=== PATIENT | male | born 1935 | race Caucasian/White ===

== ENCOUNTER 2016-05-21 10:15 | Inpatient (IN) | payer MEDICARE, OTHER ==
[~2016-05-21] VITALS: Ht 182.9 cm; Wt 63.9 kg
[2016-05-21] VITALS (15 sets, daily range): BP systolic 118–147; BP diastolic 58–88; PULSE 44–70; RESP 12–21; O2SAT 96–100
[~2016-05-21 10:15] MED LIST: 0.9% Sodium Chloride 1,000 ML ONE; Heparin 1,000 Unit/mL 10 mL Inj ONE; Heparin 1,000 Units/500 mL NS Premix IV ONE; Heparin 5,000 Units/500 mL NS Premix IV ONE; Nitroglycerin 50,000 mcg/250 mL D5W Premix IV ONE
--- NOTE | 2016-05-21 10:20 | ED.REPORT ---
HPI-Chest Pain 40 and Over Date of Service May 21, 2016 ED Provider: Dr. Mijares Pt is a 81 year old male with a hx of Afib and prostate cancer presenting to the ED via EMS complaining of chest pain onset 0845 this morning. Pre hospital EKG shows clear cut inferior wall STEMI with ST elevation in 23 and AVF with reciprocal changes in anterior leads. His heart rate was in the 30s in the field. Associated symptoms include abdominal pain. Denies SOB, chest pain currently. He denies being on anticoagulants or history of heart disease or kidney problems. Pt given 4000 bolus heparin, 1000 units per hour since 0940, 324 ASA, atropine and Plavix 300 at 0940. No beta hina given because of bradycardia. Pt is on dig alone for Afib no anticoagulants or ASA normally taken. Nursing Notes Stated Complaint: STEMI Chief Complaint: Chest Pain Nursing Notes Reviewed: Yes Allergies: Coded Allergies: gatifloxacin (Verified Allergy, Unknown, 05/21/16) pseudoephedrine (Verified Allergy, Unknown, 05/21/16) General Time Seen by MD: 10:15 Chief Complaint Chest pain Hx Obtained From: Patient, EMS Arrived By: Ambulance Sudden in Onset?: Yes Onset Occurred: 1 - 4 hours ago Symptom Duration: Waxes and wanes Quality: Painful Severity: Current: No pain currently Severity: Maximum: Moderate Recent Healthcare: No recent doctor visit, No recent hospitalization Similar Sx Previous: No Past Medical History Past Medical History Prostate cancer Reports: Atrial fibrillation Past Surgical History denies Smoking History Unknown if Ever Smoker Ambulatory Status Independent Review of Systems Respiratory: Denies: Shortness of breath Cardiovascular: Reports: Chest pain GI: Reports: Abdominal pain Complete sys rev & neg: except as marked. Physical Exam Initial Vital Signs Vital signs are on the nursing flow sheet. Initial VS: Reviewed Head / Eyes: Atraumatic, Normocephalic, PERRL ENT: Mucous membranes moist, Conjunctiva normal, No scleral icterus Neck: Supple, Non-tender, Full range of motion Skin: Warm, Dry, No cyanosis Neurologic: Alert, Oriented, Nonfocal Psychiatric: Mood/affect normal, Behavior normal, Normal thought content General/Constitutional: Awake, Alert, No acute distress, Well appearing Respiratory / Chest: Breath sounds NL, Breath sounds = bilat, No respiratory distress, No rales, No rhonchi, No wheezing Cardiovascular: Heart rate NL, Regular rhythm, Heart sounds NL Abdomen: Soft, Non-tender Interpretation & Diagnostics ECG Interpretation ECG Interpretation: Clear cut inferior wall STEMI. With ST elevation in 23 and AVF with reciprocal changes in anterior leads. Interpreted by: ED physician ECG Interpretation: Nonspecific ST wave changes. Time: 10:22 Interpreted by: ED physician X-Ray Chest Interpretation Chest Xray Interpretation: IMPRESSION: No acute cardiopulmonary findings. Dictated by: Ruthy Lucia M.D. on 05/21/2016 at 10:41 View: Portable, 1 view Interpretation / Wet Read by: Interpret - Radiologist Re-Eval/Medical Decision Time of Eval: 10:26 Patient Status: Condition improved Re-Evaluation/Progress Note: Pt being prepared to go to open hearth laborer. Counseled Regarding: Diagnosis, Lab results, Need for follow-up, When/why to return to ED Discharge & Departure Primary Impression: STEMI (ST elevation myocardial infarction) Disposition: ADMITTED TO HOSPITAL Discharge Condition All VS Reviewed: Yes Condition: Improved Crit Care Except Billable Proc Time Spent: 30-74 minutes Services Performed: Patient management by me, Time spent at bedside, Reviewing test results, Reviewing imaging, Discussing patient care, Documentation in record Scribe Attestation Portions of this note were transcribed by Carina Calvo. I, Dr. Mijares personally performed the history, physical exam and medical decision-making; I reviewed and confirmed the accuracy of the information in the transcribed note. Signed by: Ling Felipe, 05/21/2016 and 1202. Arsen Mijares MD May 21, 2016 10:20 CARINA CALVO May 21, 2016 10:27
[2016-05-21] MEDS ORDERED: Ondansetron 2 mg/mL 2 mL Inj IVPUSH ONE (10:25)
[2016-05-21] MEDS ORDERED: Heparin 25K Unit/500mL 0.45 NS 25,000 UNIT in IV Premix 1 EACH IV SCH (10:25)
[2016-05-21] MEDS ORDERED: 0.9% Sodium Chloride 1,000 ML IV ONE (10:25)
--- NOTE | 2016-05-21 10:43 | DRSVH ---
PROCEDURE: X-RAY CHEST ONE VIEW, PORTABLE ([id number]) INDICATIONS: CP TECHNIQUE: One view of the chest was acquired. COMPARISON: None. FINDINGS: Surgical changes and devices: None. Lungs and pleura: No pleural effusions or pneumothorax. Lungs are clear. Mediastinum: Mediastinal contours appear normal. Heart size is normal. Bones and chest wall: No suspicious bony lesions. Overlying soft tissues appear unremarkable. IMPRESSION: No acute cardiopulmonary findings. Dictated by: Ruthy Lucia M.D. on 05/21/2016 at 10:41 Approved by: Ruthy Lucia M.D. on 05/21/2016 at 10:41
[2016-05-21] MEDS ORDERED: fentaNYL-PF 50 mCg/mL 2 mL Inj ONE (10:50)
[2016-05-21] MEDS ORDERED: Atropine 1 mg/10 mL (Code) Syringe ONE (10:54)
[2016-05-21] MEDS ORDERED: NitroPRUSSIDE 25,000 mCg/mL 2 mL Inj IV ONE (10:56)
[2016-05-21] MEDS ORDERED: Dextrose 5% 250 ML IV ONE (10:56)
[2016-05-21 11:16] LABS: TROPONIN T 0.01 ug/L (0.0-0.011)
[2016-05-21] MEDS ORDERED: 0.9% Sodium Chloride 250 ML IV PRN (12:22)
[2016-05-21] MEDS ORDERED: Ondansetron 2 mg/mL 2 mL Inj IVPUSH PRN (12:25)
[2016-05-21] MEDS ORDERED: PSYL660P17 PO (13:30)
[2016-05-21] MEDS ORDERED: DIGO125T16 PO (13:30)
[2016-05-21] MEDS ORDERED: DOCU250C2 PO (13:30)
[2016-05-21 13:32] LABS: BASOPHILS % (AUTO) 0.2 % (0-3); EOSINOPHILS % (AUTO) 1.3 % (0-5); MONOCYTES % (AUTO) 9.3 % (4-12); Mean Corpuscular Hemoglobin 29.8 pg (27.0-35.0); Mean Corpuscular Volume 92.5 fL (81-100); Platelet Count 125 bil/L (150-400)
--- NOTE | 2016-05-21 13:55 | NUR ---
Admit Note: Patient was admitted to CCU room 2020. Pt arrived via pt bed from superintendent geophysical laboratory at about 1150. Pt A&O X3. Tele: Sinus Sharif. Denies CP, SOB palpitations. RA. VSS. PIV SL X2. R groin site is soft, non tender to touch. Bio occlusive dressing C/D/I. Dorsalis pedis pulses palpable and equal bilaterally. Patient states he uses [facility] for pharmacy.
--- NOTE | 2016-05-21 15:22 | DI95 ---
[address] [address] INTERVENTIONAL CARDIAC CATHETERIZATION PATIENT: TONYA TAYLOR : 1935 MR#: [id number] ADMIT: 05/21/2016 JOB ID: [id number] PROCEDURE: Selective right and left coronary angiography, left heart catheterization, percutaneous intervention of the right coronary artery. INDICATION: Acute ME. PROCEDURAL DETAILS: These are well enumerated in the procedure log to which the reader and the coders are referred. ANGIOGRAPHIC FINDINGS: 1. Left main: No significant disease. 2. LAD Is a moderate-caliber vessel, free of any critical disease. 3. Circumflex is a small, nondominant vessel. In its mid segment, it has 30% to 50% blockage. 4. Right coronary artery is a large dominant vessel. In its mid segment, it had a thrombotic 90% lesion. 5. Left heart catheterization revealed an LVEDP of 18. There was no gradient upon pullback. Hand injection suggested inferior and apical hypokinesis. There appeared to be moderate LV dysfunction. INTERVENTIONAL REPORT: We then proceeded ahead with an intervention on the right coronary artery. An AL1 guide was used because of the anterior takeoff of the right coronary artery. This lesion was pre-dilated and then stented with a 3.5 x 28 mm Xience drug-coated stent delivered at 14 atmospheres with excellent angiographic results. The patient is advised to stay on dual antiplatelet therapy for at least six months, preferably one year post procedure.
--- NOTE | 2016-05-21 15:31 | HP ---
[address] [address] HISTORY AND PHYSICAL PATIENT: TONYA TAYLOR : 1935 MR#: [id number] ADMIT: 05/21/2016 JOB ID: [id number] DATE OF SERVICE: 05/21/2016 CHIEF COMPLAINT: Chest discomfort. This gentleman was transferred from [facility] because of an acute inferior [place]. ballistics laboratory gunsmith was activated. I saw the patient in the warehouse laborer. At the time of my interview, the patient's chest discomfort was starting to sebastian. An EKG done at [facility] showed marked tombstoning in the inferior leads with significant reciprocal depression. By the time an EKG was done at [facility], the EKG had normalized. En route, he had received heparin as well as Plavix. The patient states that the chest discomfort started around quarter to nine. He was working out in his yard. He was digging ground. He started having chest discomfort. This is the first time he has ever had this type of chest discomfort. He denies any prior prodromal symptoms. He denies any prior cardiac history. He is otherwise fairly active. PAST MEDICAL HISTORY: Atrial fibrillation, diagnosed in 2010, following his TURP. Denies any hypertension, though for the last few months, he states his blood pressure has been on the high side. Denies diabetes. MEDICATIONS AT HOME: Digoxin. ALLERGIES: 1. PSEUDOEPHEDRINE. 2. GATIFLOXACIN. PERSONAL HISTORY: Nonsmoker. Drinks occasionally. He is retired from the [employer]. FAMILY HISTORY: Noncontributory. REVIEW OF SYSTEMS: Comprehensive review of systems was done and the pertinent negatives are no GI, bleeding. No upcoming surgeries. No strokes or TIAs. PHYSICAL EXAMINATION: Mildly distressed, slightly anxious, elderly gentleman who looks his age. Neck: Supple. No JVD. Chest: Clear. Heart sounds S1, S2 were regular. No gallops, no murmurs. Abdomen soft. Extremities negative for CCE, 2+ pulses. SPECTROGRAPH OPERATOR: Alert and oriented. EKG as described. ASSESSMENT AND PLAN: This gentleman presents with an acute inferior myocardial infarction. He is still having ongoing chest discomfort. His EKG has normalized, probably because of medical therapies. Recanalized his right coronary artery and there is flow through of the lesion. I suspect a thrombotic lesion in his right coronary artery. I have discussed his treatment options. The patient is willing to proceed ahead with angiography. He verbalized consent after risks and benefits were explained to him. Postprocedure, he will be admitted to our CCU. Further management shall be up to the hospital team and Dr. Valentino, who is land reclamation specialist.
--- NOTE | 2016-05-21 16:38 | PCM.HPMED ---
Subjective Date of Service May 21, 2016 Primary Provider: Admitting Physician: Tommy Siddiqui MD Primary Care Physician: Nopradha Attending Physician: Tommy Siddiqui MD Chief Complaint: Chest pain History of Present Illness: 80 years old who initially presented to [facility] after he started experiencing chest pain for the first time ever while working on his yard . He was found to have EKG in ER with marked acute ACS involving inferior leads with reciprocal depression. produce laborer was activated here at [facility] and patient was transferred here for emergent coronary angiography. Patient was started on heparin drip, plavix and nitroglycerine drip . At the time of arrival her his EKG was normalized . Review of Systems: Pertinent for chest pain otherwise a comprehensive x 12 points is negative Allergies Coded Allergies: gatifloxacin (Verified Allergy, Unknown, 05/21/16) pseudoephedrine (Verified Allergy, Unknown, 05/21/16) Home Medications Digoxin 125 mcg po daily, docusate 250 mg PO daily, Mucinex PMH Atrail Fibrillation , Hypertension? Surgical History TURP Family History Reviewed and is non contributory to the present illness Social History Hx Alcohol Use: Yes Alcoholic Drinks Per Day: last drink in February Hx Substance Use: No Smoking Status: Unknown if Ever Smoker Living Arrangement: with Family Exam Vital Signs Vital Sign - Last Date Time Temp Pulse Resp B/P Pulse Ox O2 Delivery O2 Flow Rate FiO2 05/21/16 16:19 36.7 55 16 135/79 100 Room Air 05/21/16 10:15 2 Exam General : well nourished male. NAD, AAO x3 HEENT : EPRL, normocephalic . Anicteric sclerae Neck : Supple, no JVD, trachea is midline CHest : No tenderness, No deformity, normal respiratory effort Lung : Clear bilaterally, no crackles, no wheezing Heart : S1S2, RRR, No Gallop, no murmur Abdomen : Soft, NT non distended. BS normal all quadrants Extremities : no edema, no cyanosis Neuro : Grosssly non focal Skin : No rash, no ulcer Lab and Diagnostics Result Diagram: 05/21/16 0830 05/21/16 1025 X-Rays, CTs and MRIs Chest X-ray reviewed : No acute cardiopulmonary findings Assessment & Plan 1/. NSTEMI S/p PCI 1. Left main: No significant disease. 2. LAD Is a moderate-caliber vessel, free of any critical disease. 3. Circumflex is a small, nondominant vessel. In its mid segment, it has 30% to 50% blockage. 4. Right coronary artery is a large dominant vessel. In its mid segment, it had a thrombotic 90% lesion. 5. Left heart catheterization revealed an LVEDP of 18. There was no gradient upon pullback. Hand injection suggested inferior and apical hypokinesis. There appeared to be moderate LV dysfunction. On heparin drip. Continue dual antiplatelets with Plavix and Aspirin Obtain lipid profile , TSH and A1c Management per cardiology VTE Prophylaxis: Other (On heparin drip ) Resuscitation Status: CPR: Attempt Resuscitation Time spent 55 Minutes Nikhil Courtney MD May 21, 2016 16:38
[2016-05-21] MEDS ORDERED: Senna-Docusate 8.6-50 mg Tablet PO PRN (17:30)
[2016-05-21] MEDS ORDERED: Polyethylene Glycol (PEG) 17 Gm Powder PO PRN (17:30)
[2016-05-21] MEDS ORDERED: Alum-Mag Hydrox-Simeth 30 mL Suspension PO PRN (17:30)
--- NOTE | 2016-05-21 19:01 | NUR ---
Tele/ VTach P: Sinus Sharif 40-50's. Several beats of VTach @ 1800 and again 1830 I: pt asymptomatic. Dr Valentino notified. VSS. E: Hold 2030 dose of Metoprolol due to bradycardia. Report given to RADHA RODRIGUEZ. Pt remains on remote Telemetry.
--- NOTE | 2016-05-21 20:00 | NUR ---
Groin site Patients right groin site was found to be slightly oozy when I came on shift. Pressure was held over the site for 15 minutes and oozing decreased. Dressing was replaced and patient reports being free of pain. CMS is intact to baseline and patient denies back/flank pain. No other signs of bleeding present.
[2016-05-22] VITALS (8 sets, daily range): BP systolic 114–130; BP diastolic 60–72; PULSE 46–54; RESP 16; O2SAT 97–99
[2016-05-22 08:12] LABS: BASOPHILS % (AUTO) 0.2 % (0-3); EOSINOPHILS % (AUTO) 0.6 % (0-5); MONOCYTES % (AUTO) 12.7 % (4-12); Mean Corpuscular Hemoglobin 30.4 pg (27.0-35.0); Platelet Count 140 bil/L (150-400)
[2016-05-22 08:54] LABS: TROPONIN T 1.13 ug/L (0.0-0.011)
--- NOTE | 2016-05-22 11:15 | PCM.PNCARD ---
Subjective Date of service May 22, 2016 Chief Complaint Acute coronary syndrome History of Present Illness Mr. Chisholm is a 80-year-old male with history of atrial fibrillation with rate control on digoxin and then [facility] with acute coronary syndrome and was transferred to [facility]. Cardiac catheterization revealed 90% occluded RCA. Dr. Narayan intervened with CASA. Patient will need to continue on aspirin indefinitely, clopidogrel and minimum of 6-12 months. He was also started on atorvastatin 20 mg daily, metoprolol titrate 25 mg twice a day, lisinopril 10 mg daily. Symptomatically the patient had an uneventful evening other than some oozing from his right groin which was controlled with manual hold approximately 10 PM last night. Telemetry yesterday showed a 8 beat run of VT and proximally 6 PM and a 4 beat run of VT at proximally 10 PM. The patient was asymptomatic with these events. He has maintained a heart rate in the low 50s with one bradycardia event early this morning in the 30s. His p.m. dose of metoprolol was held last night secondary to the bradycardia. Patient claims he is feeling well at this time without complaint. He denies dyspnea, chest pain, palpitation, lightheadedness, right groin or right leg pain. He has no numbness, tingling or weakness to his right lower extremity. He claims he has normal urine output and has had a normal bowel movement today. No abdominal pain. ROS is otherwise noncontributory and benign. Subjective: ROS is otherwise benign as mentioned above. Exam Vital Signs Vital Sign - Last Date Time Temp Pulse Resp B/P Pulse Ox O2 Delivery O2 Flow Rate FiO2 05/22/16 08:30 52 05/22/16 08:13 36.6 16 130/70 99 Room Air 05/21/16 10:15 2 Intake and Output 05/21/16 05/21/16 05/22/16 Cumulative From/Thru 15:00 23:00 07:00 05/21/16 10:15 - 05/22/16 06:05 Intake Total 400 ml 600 ml 1000 ml Output Total 600 ml 500 ml 1100 ml Balance -200 ml 100 ml -100 ml Intake Oral 400 ml 600 ml 1000 ml Output Urine Total 600 ml 500 ml 1100 ml # Voids 2 2 # Bowel Movements 0 0 Additional Information: #General- patient lying back in bed comfortably in no apparent distress. #Chest- symmetrical, reading quietly without retractions. No adventitious sounds to auscultation. #CV- irregularly irregular, no gallop. Right groin without hematoma or significant bruising. Small gauze is mildly saturated but stable. No bruit to the groin and no significant tenderness. 1+ posterior tibial pulse on the right leg. No edema. Skin is appropriately warm to touch. #Abdomen- soft nontender #-Integument- normal color and turgor. No significant bruise or hematoma to right groin. #Neurologic- patient is alert and oriented 4, no obvious motor deficits. Normal sensation and motor function to right leg. Lab and Diagnostics Result Diagram: 05/22/16 0500 05/22/16 0500 12-lead ECG Telemetry last 24 hours. Brief run 8 beats of ventricular tachycardia at 6 PM and again 4 beat run at 10 PM. Mild bradycardia in the 30s proximally 4 AM today. Assessment & Plan Assessment Mr. Chisholm is a 80-year-old male with history of atrial fibrillation with rate control on digoxin and [facility] and was transferred to [facility]. Cardiac catheterization revealed 90% occluded RCA. Imaging also showed inferior and apical hypokinesis. Dr. Narayan intervened with CASA. Patient will need to continue on aspirin indefinitely, clopidogrel and minimum of 6-12 months. He was also started on atorvastatin 20 mg daily, metoprolol titrate 25 mg twice a day, lisinopril 10 mg daily. Symptomatically the patient had an uneventful evening other than some oozing from his right groin which was controlled with manual hold approximately 10 PM last night. Telemetry yesterday showed a 8 beat run of VT and proximally 6 PM and a 4 beat run of VT at proximally 10 PM. The patient was asymptomatic with these events. He has maintained a heart rate in the low 50s with one bradycardia event early this morning in the 30s. His p.m. dose of metoprolol was held last night secondary to the bradycardia. Patient claims he is feeling well at this time without complaint. He denies dyspnea, chest pain, palpitation, lightheadedness, right groin or right leg pain. He has no numbness, tingling or weakness to his right lower extremity. He claims he has normal urine output and has had a normal bowel movement today. No abdominal pain. Patient doing apparently well at time of evaluation today without complaint. #Coronary artery disease- patient status post STEMI with 90% RCA occlusion intervened with CASA. Patient has inferior and apical hypokinesis. Patient to continue metoprolol 25 mg twice a day, lisinopril 10 mg daily. Aspirin indefinitely. Plavix 75 mg minimum of 6-12 months. Atorvastatin 20 mg daily. Patient will benefit from cardiac rehabilitation. He will need follow-up with mid-level provider in 2 weeks in cardiology and with physician in cardiology in 3 months. Patient instructions for activity and bathing are reviewed. Hospitalist review again upon discharge. We are recommending keeping him overnight for surveillance at least one more night as we hold dig, titrate heart rate for A. fib with metoprolol and monitor for further ventricular ectopy. #Atrial fibrillation- discussed with Dr. Fong. He would like to stop digoxin at this time. Rate control with metoprolol tartrate 25 twice a day. #Hypertension- continue lisinopril 10 mg daily, metoprolol titrate 25 mg twice a day. Problems: VTE Prophylaxis: Other (On heparin drip ) VTE Mechanical Devices: Intermittant Pneumatic CD Resuscitation Status: CPR: Attempt Resuscitation Attending Statement I interviewed and examined patient and discussed with Leroy Arndt. Agree with above but on further questioning, sounds like patient only had brief limited episode of atrial fibrillation for which he was on warfarin briefly and digoxin since then. I suspect his ventricular ectopy is from infarct and should improve but will stop digoxin and replace with metoprolol. He can be D/C'd tomorrow on ASA, clopidogrel, metoprolol, lisinopril, and fu with Dr. Narayan in 3 weeks and referral to cardiac rehab. Tommy Arndt PA-C May 22, 2016 10:34 Tommy Fong MD May 22, 2016 14:50
--- NOTE | 2016-05-22 11:41 | PCM.PNMED ---
Subjective Date of Service May 22, 2016 Subjective Patient seen and examined at bedside . He is feeling better. No CP. Overnight he had 2 run of non sustained Vtach and some oozing at the groin site , which is resolved now Exam Vital Signs Vital Sign - Last Date Time Temp Pulse Resp B/P Pulse Ox O2 Delivery O2 Flow Rate FiO2 05/22/16 10:35 50 05/22/16 08:13 36.6 16 130/70 99 Room Air 05/21/16 10:15 2 Intake and Output 05/21/16 05/21/16 05/22/16 Cumulative From/Thru 15:00 23:00 07:00 05/21/16 10:15 - 05/22/16 06:05 Intake Total 400 ml 600 ml 1000 ml Output Total 600 ml 500 ml 1100 ml Balance -200 ml 100 ml -100 ml Intake Oral 400 ml 600 ml 1000 ml Output Urine Total 600 ml 500 ml 1100 ml # Voids 2 2 # Bowel Movements 0 0 Exam General : . NAD, AAO x3 HEENT :Anicteric sclerae Neck : Supple, no JVD, trachea is midline Lung : Clear bilaterally, no crackles, no wheezing Heart : S1S2, RRR, No Gallop, no murmur Abdomen : Benign Extremities : no edema, no cyanosis Neuro : Grossly intact IVs and Medications Medications Reviewed: Medications were reviewed in detail Lab and Diagnostics Result Diagram: 05/22/16 0500 05/22/16 0500 X-Rays, CTs and MRIs Chest X-ray reviewed : No acute cardiopulmonary findings Assessment & Plan 1/. NSTEMI 2. Non sustained Ventricular tachycardia S/p PCI 1. Left main: No significant disease. 2. LAD Is a moderate-caliber vessel, free of any critical disease. 3. Circumflex is a small, nondominant vessel. In its mid segment, it has 30% to 50% blockage. 4. Right coronary artery is a large dominant vessel. In its mid segment, it had a thrombotic 90% lesion. 5. Left heart catheterization revealed an LVEDP of 18. There was no gradient upon pullback. Hand injection suggested inferior and apical hypokinesis. There appeared to be moderate LV dysfunction. Continue dual antiplatelets with Plavix and Aspirin. HE will continue Aspirin indefinitely and Plavix per 6 months per Cardiology Continue Metoprolol. lisinopril and Statins. Digoxin discontinued Lipid profile noted. LDL at goal , A1c pending Monitor overnight . Discharge anticipated in AM Change Lovenox to DVT prophylaxis VTE Prophylaxis: Other (On heparin drip ) VTE Mechanical Devices: Intermittant Pneumatic CD Resuscitation Status: CPR: Attempt Resuscitation Time spent 25 minutes Nikhil Courtney MD May 22, 2016 11:41
--- NOTE | 2016-05-22 13:01 | NUR ---
Social Work: Initial Assessment Data & Assessment: See Initial Assessment. EMR Reviewed. Patient is a 80 year old male that admitted on 05/21/16 due to STEMI per H& P. Delivery Tech met with patient at bedside to complete initial assessment, Social Work role explained and discharge planning discussed. Advanced directives were discussed and patient declined Advanced Directives paperwork. Patient confirmed that he does not have a PCP. Patient's insurance is Medicare and [employer]. Patient does not have any LTC benefits, but does have VA benefits. Patient reports that he is independent at baseline with no DME. Patient reports no HH history and no SNF history. Patient lives at home with his in a one story home with three steps to enter. SW does not anticipate that patient will have any needs at discharge. SW provided phone number and plan on white board in room. SW will continue to follow Plan: Pt to likely discharge home with no needs via POV. SW will continue to follow. Berna Tadeo LMSW, ACM Addendum: 05/22/16 at 1309 by BERNA TADEO Amended: Links added.
--- NOTE | 2016-05-22 13:42 | DRSVH ---
[facility] [address] [place] [address] Echocardiogram Report Name: TONYA TAYLOR ate: 05/22/2016 Height: 72 in Hospital Exam Location: [facility] Weight: 145 lb Gender: Male BSA: 1.9 m2 : 1935 Age: 80 yrs BP: 124/ 72 mmHg Reason For Study: STEMI Ordering Physician: Rod Narayan Performed By: Rosa Cosme Referring Physician: Dr. Greg Pratt Interpretation Summary Left ventricular wall thickness is borderline increased. Left ventricular systolic function is mildly reduced. The ejection fraction is estimated to be 45-50%. There is severe hypokinesis along the mid and distal inferolateral wall and proximal and distal inferior wall. There is mild hypokinesis along the mid inferior wall. Assessment of diastolic parameters indicates a relaxation abnormality of the left ventricle, consistent with normal filling pressures. The right ventricle is normal in size and function. The right ventricular systolic pressure is estimated at 31 mmHg assuming a right atrial pressure of 15 mm Hg. The left atrium is mildly dilated. Right atrial size is normal. The mitral regurgitant jet is eccentrically directed. There is at least mild mitral regurgitation There is mild pulmonic regurgitation. There is no other significant valvular heart disease. The aortic root is mildly dilated. The ascending aorta is mildly enlarged. The aortic arch is mildly enlarged. Procedure: A two-dimensional transthoracic echocardiogram with color flow and Doppler was performed. The study quality was technically good. Comparison is made with the echocardiogram of 08/29/2006. The patient was in sinus bradycardia with heart rates between 44/51 bpm during the exam. Left Ventricle: Left ventricular wall thickness is borderline increased. The left ventricle is normal in size. A false chord is noted (normal variant). There is no thrombus. Left ventricular systolic function is mildly reduced. The ejection fraction is estimated to be 45-50%. There is severe hypokinesis along the mid and distal inferolateral wall and proximal and distal inferior wall. There is mild hypokinesis along the mid inferior wall. Assessment of diastolic parameters indicates a relaxation abnormality of the left ventricle, consistent with normal filling pressures. Right Ventricle: The right ventricle is normal in size and function. Atria: The left atrium is mildly dilated. Right atrial size is normal. The atrial septum is aneurysmal. There is no Doppler evidence for an interatrial shunt. Mitral Valve: The mitral valve is normal. There is nodular thickening of the posterior MV leaflet tip. The mitral regurgitant jet is eccentrically directed. There is at least mild mitral regurgitation. Aortic Valve: The aortic valve opens well. There is trace aortic regurgitation. Tricuspid Valve: The tricuspid valve is normal in structure and function. There is a trace or physiologic amount of tricuspid regurgitation. The right ventricular systolic pressure is estimated at 31 mmHg assuming a right atrial pressure of 15 mm Hg. Pulmonic Valve: The pulmonic valve leaflets are thin and pliable; valve motion is normal. There is mild pulmonic regurgitation. There is no other significant valvular heart disease. Great Vessels: The aortic root is mildly dilated. The ascending aorta is mildly enlarged. The aortic arch is mildly enlarged. The IVC is dilated (diameter is greater than 2.1 cm) and it collapses less than 50% with a sniff. This suggests a high right atrial pressure of 15 mm Hg. Pericardium/ Pleura There is no pericardial effusion. MMode/2D Measurements & Calculations LVIDd: 4.6 cm RA long axis LVOT diam: 2.2 cm LVIDs: 3.0 cm LA A2 area: 18.3 cm Ao root diam FS: 33.6 % LA A4 area: 19.3 cm RA area IVSd: 1.1 cm LA length (vol) asc Aorta Diam LVPWd: 1.0 cm : 15.9 cm LA vol: 65.4 ml RA vol Ao Arch Diam (Prox LA vol index : 41.0 ml Trans): 3.6 cm RA : 22.1 mm2 IVC diam: 2.9 cm LV bai. diameter/BSA LV sys. diameter/BSA RVD1 (basal) (cm/m^2): 2.5 (cm/m^2): 1.6 Doppler Measurements & Calculations Ao V2 max MV E max freedom MV E/A: 0.72 TR max freedom : 135.1 cm/sec : 51.8 cm/sec Med Peak E' Freedom : 202.1 cm/sec Ao max PG MV A max freedom TR max PG : 7.3 mmHg : 72.1 cm/sec E/E' med: 8.5 : 16.3 mmHg Ao mean PG MV P1/2t: 76.8 msec Pulm A Revs Dur PA V2 max : 87.8 cm/sec LVOT Max Freedom MV A dur: 0.12 sec PA mean PG : 90.2 cm/sec PA Accel Time BRAD(I,D): 2.5 cm : 0.07 sec sev ratio MV dec time MV P1/2t max freedom Ao V2 mean LV V1 max PG : 0.26 sec : 88.4 cm/sec MVA(P1/2t): 2.9 cm2 Ao V2 VTI: 26.8 cm LV V1 VTI BRAD(V,D): 2.4 cm2 : 18.7 cm PA V2 mean BRAD indexed to BSA Pulm A Revs Dur - MV : 52.2 cm/sec (cm^2/m^2): 1.4 A Dur: 0.03 msec Reading Physician:PM
--- NOTE | 2016-05-22 18:22 | NUR ---
Groin Site Cardiac: Patient denies chest pain. Tele: SR 40s-50s. Digoxin held this AM for Bradycardia, metoprolol given. Some sanguineous drainage from right groin site when pt up to BR this AM. Pressure applied for 15 min. Dressing changed. Gauze saturated again in the afternoon, no bleeding beyond bioocclusive dressing, dressing changed agian. Resp: Pt denies SOB, SPO2 98% on RA. GI/: Pt denies n/v Neuro: A/Ox4 MOULTON.
--- NOTE | 2016-05-23 01:12 | NUR ---
activity patient up independently in room. groin site stable- unchanged./ saturated gauze, under bio occlusive. tele sinus jame 50's. tolerating metoprolol po. denies pain. care ongoing.
[2016-05-23 03:46] VITALS: BP 128/72; PULSE 59; RESP 20; O2SAT 95
[2016-05-23 07:39] LABS: Mean Corpuscular Hemoglobin 30.3 pg (27.0-35.0); Mean Corpuscular Volume 92.9 fL (81-100)
[2016-05-23 08:30] VITALS: BP 144/80; PULSE 56; RESP 16; O2SAT 95
--- NOTE | 2016-05-23 10:17 | NUR ---
[facility] [id number]
--- NOTE | 2016-05-23 11:10 | PCM.DIMED ---
Discharge Instructions Date of Service May 23, 2016 Dates of Hospitalization May 21, 2016 at 11:57 Discharge Diagnosis Discharge Diagnosis STEMI status post drug-eluting stent to 90% occluded RCA per Dr. Helene Elise VKoffi tach, resolved Atrial fibrillation Medication Instructions Patient started on atorvastatin 20 mg, metoprolol 25 mg twice daily, lisinopril 10 mg and clopidogrel for minimum of 6-12 months, indefinite aspirin therapy Test Results Echo: 05/22 Interpretation Summary Left ventricular wall thickness is borderline increased. Left ventricular systolic function is mildly reduced. The ejection fraction is estimated to be 45-50%. There is severe hypokinesis along the mid and distal inferolateral wall and proximal and distal inferior wall. There is mild hypokinesis along the mid inferior wall. Assessment of diastolic parameters indicates a relaxation abnormality of the left ventricle, consistent with normal filling pressures. The right ventricle is normal in size and function. The right ventricular systolic pressure is estimated at 31 mmHg assuming a right atrial pressure of 15 mm Hg. The left atrium is mildly dilated. Right atrial size is normal. The mitral regurgitant jet is eccentrically directed. There is at least mild mitral regurgitation There is mild pulmonic regurgitation. There is no other significant valvular heart disease. The aortic root is mildly dilated. The ascending aorta is mildly enlarged. The aortic arch is mildly enlarged. Cath Report: ANGIOGRAPHIC FINDINGS: 1. Left main: No significant disease. 2. LAD Is a moderate-caliber vessel, free of any critical disease. 3. Circumflex is a small, nondominant vessel. In its mid segment, it has 30% to 50% blockage. 4. Right coronary artery is a large dominant vessel. In its mid segment, it had a thrombotic 90% lesion. 5. Left heart catheterization revealed an LVEDP of 18. There was no gradient upon pullback. Hand injection suggested inferior and apical hypokinesis. There appeared to be moderate LV dysfunction. INTERVENTIONAL REPORT: We then proceeded ahead with an intervention on the right coronary artery. An AL1 guide was used because of the anterior takeoff of the right coronary artery. This lesion was pre-dilated and then stented with a 3.5 x 28 mm Xience drug-coated stent delivered at 14 atmospheres with excellent angiographic results. Diet Heart Healthy Activity Limited until seen by PCP (low intensity walking okay), Other (plan for future cardiac rehabilitation) Call your provider Fever or Chills, Shortness of breath, Chest pain Patient Instructions You have been hospitalized for a heart attack that involved the bottom of the heart. A drug eluting stent has been placed to keep ear vessel open and facilitate oxygenation of your heart. Please follow up with her primary care doctor, at [place] within [address] Narayan within 1 week He had been prescribed a new cholesterol medicine, total statin to take every day. You been prescribed a blood thinner called clopidogrel to take once daily You have also been prescribed a blood pressure medicine, lisinopril and metoprolol to take as directed. All of these medications are protective for your heart. I have held her digoxin, please do not take his any longer as this can slow your heart rate significantly if taken along with you metoprolol. Please do not miss any doses Follow-up plan See above Follow-up Provider: Greg Pratt MD Follow-up with PCP in: 1 week Provider: Rod Narayan MD Follow-up in: 1 week (1-2 weeks) Cardiac Rehab: 2 weeks (primary care physician can make a follow-up referral) Nikhil Ruvalcaba DO May 23, 2016 11:10
[2016-05-23 11:17] VITALS: PULSE 52
[2016-05-23] MEDS ORDERED: METO25TA6 PO (12:00)
[2016-05-23] MEDS ORDERED: LISI-610 PO (12:00)
[2016-05-23] MEDS ORDERED: ASPI81TA3 PO (12:00)
[2016-05-23] MEDS ORDERED: CLOP75TA28 PO (12:00)
[2016-05-23] MEDS ORDERED: ATOR20TA65 PO (12:00)
--- NOTE | 2016-05-23 12:05 | PCM.DC.MED ---
Discharge Summary Date of Service May 23, 2016 Dates of Hospitalization Date of Hospital Admission May 21, 2016 at 11:57 Date of Discharge: May 23, 2016 Providers: Admitting Physician: Tommy Siddiqui MD Primary Care Physician: Nopcp Attending Physician: Tommy Siddiqui MD Diagnosis at Time of Discharge Diagnosis at Time of Discharge STEMI status post drug-eluting stent to 90% occluded RCA per Dr. Narayan Asymptomatic V. tach, resolved Atrial fibrillation Consultations Dr. Narayan of Cardiology Procedures XRay, CTs & MRIs Chest X-ray reviewed : No acute cardiopulmonary findings Cardiac Echo Impression Echo: 05/22 Interpretation Summary Left ventricular wall thickness is borderline increased. Left ventricular systolic function is mildly reduced. The ejection fraction is estimated to be 45-50%. There is severe hypokinesis along the mid and distal inferolateral wall and proximal and distal inferior wall. There is mild hypokinesis along the mid inferior wall. Assessment of diastolic parameters indicates a relaxation abnormality of the left ventricle, consistent with normal filling pressures. The right ventricle is normal in size and function. The right ventricular systolic pressure is estimated at 31 mmHg assuming a right atrial pressure of 15 mm Hg. The left atrium is mildly dilated. Right atrial size is normal. The mitral regurgitant jet is eccentrically directed. There is at least mild mitral regurgitation There is mild pulmonic regurgitation. There is no other significant valvular heart disease. The aortic root is mildly dilated. The ascending aorta is mildly enlarged. The aortic arch is mildly enlarged. Cath Report: ANGIOGRAPHIC FINDINGS: 1. Left main: No significant disease. 2. LAD Is a moderate-caliber vessel, free of any critical disease. 3. Circumflex is a small, nondominant vessel. In its mid segment, it has 30% to 50% blockage. 4. Right coronary artery is a large dominant vessel. In its mid segment, it had a thrombotic 90% lesion. 5. Left heart catheterization revealed an LVEDP of 18. There was no gradient upon pullback. Hand injection suggested inferior and apical hypokinesis. There appeared to be moderate LV dysfunction. INTERVENTIONAL REPORT: We then proceeded ahead with an intervention on the right coronary artery. An AL1 guide was used because of the anterior takeoff of the right coronary artery. This lesion was pre-dilated and then stented with a 3.5 x 28 mm Xience drug-coated stent delivered at 14 atmospheres with excellent angiographic results. Invasive Procedures See above for cath report Brief History Mr. Reep is a 80-year-old male with history of atrial fibrillation with rate control on digoxin and [facility] and was [facility] to [facility]. Cardiac catheterization revealed 90% occluded RCA. Dr. Narayan intervened with CASA. Patient will need to continue on aspirin indefinitely, clopidogrel and minimum of 6-12 months. He was also started on atorvastatin 20 mg daily, metoprolol titrate 25 mg twice a day, lisinopril 10 mg daily. Symptomatically the patient had an uneventful evening other than some oozing from his right groin which was controlled with manual hold approximately 10 PM last night. Telemetry yesterday showed a 8 beat run of VT and proximally 6 PM and a 4 beat run of VT at proximally 10 PM. The patient was asymptomatic with these events. He has maintained a heart rate in the low 50s with one bradycardia event early this morning in the 30s. His p.m. dose of metoprolol was held last night secondary to the bradycardia. Patient claims he is feeling well at this time without complaint. He denies dyspnea, chest pain, palpitation, lightheadedness, right groin or right leg pain. He has no numbness, tingling or weakness to his right lower extremity. He claims he has normal urine output and has had a normal bowel movement today. No abdominal pain. ROS is otherwise noncontributory and benign. Hospital Course Patient was admitted for STEMI, with drug eluding stent placed the RCA as noted in attached cath report. She also had intermittent asymptomatic episodes of nonsustained V. tach, patient was placed on Plavix and aspirin, to be continued without interruption for at least 6 months per cardiology. She was also started on metoprolol which tolerated and heart rate for found to be in the 50s , without any symptoms of dizziness or lightheadedness at the time of discharge. Patient was taking digoxin as now patient for his atrial fibrillation, this was discontinued. Urology recommended patient continue with atorvastatin, metoprolol, aspirin, Plavix without recommendations for continuing Coumadin. Cath findings S/p PCI 1. Left main: No significant disease. 2. LAD Is a moderate-caliber vessel, free of any critical disease. 3. Circumflex is a small, nondominant vessel. In its mid segment, it has 30% to 50% blockage. 4. Right coronary artery is a large dominant vessel. In its mid segment, it had a thrombotic 90% lesion. 5. Left heart catheterization revealed an LVEDP of 18. There was no gradient upon pullback. Hand injection suggested inferior and apical hypokinesis. There appeared to be moderate LV dysfunction. Discharge home with , patient remained hemodynamically stable with adequate oxygenation, discharge - patient was without chest pain, dizziness or fever. Exam Vital Signs (Last) Date Time Temp Pulse Resp B/P Pulse Ox O2 Delivery O2 Flow Rate FiO2 05/23/16 08:30 36.7 56 16 144/80 95 Room Air 05/21/16 10:15 2 Exam General : . NAD, AAO x3 HEENT :Anicteric sclerae Neck : Supple, no JVD, trachea is midline Lung : Clear bilaterally, no crackles, no wheezing Heart : S1S2, RRR, No Gallop, no murmur Abdomen : Benign Extremities : no edema, no cyanosis Groin: Inguinal cath site with no active bleeding, bandage soaked Neuro : Grossly intact Test 05/21/16 10:25 05/21/16 13:32 05/21/16 15:23 05/22/16 05:00 Magnesium Level 2.0mg/dL (1.6-2.6) Digoxin Level 0.6nG/mL (0.9-2.0) Activated Partial Thromboplast Time 60.2sec (22.8-33.0) Neutrophils (%) (Auto) 66.0% (40-74) Lymphocytes (%) (Auto) 20.1% (14-46) Monocytes (%) (Auto) 12.7% (4-12) Eosinophils (%) (Auto) 0.6% (0-5) Basophils (%) (Auto) 0.2% (0-3) Hemoglobin A1c 5.5% (4.8-5.6) Total Bilirubin 0.4mg/dL (0.0-1.2) Aspartate Amino Transf (AST/SGOT) 86U/L (0-50) Alanine Aminotransferase (ALT/SGPT) 22U/L (0-44) Alkaline Phosphatase 62U/L (25-160) Troponin T 1.13ug/L (0.0-0.011) Total Protein 6.0g/dL (6.4-8.4) Albumin 3.4g/dL (3.4-5.0) Triglycerides Level 119mg/dL (0-149) Cholesterol Level 134mg/dL (100-199) LDL Cholesterol, Calculated 77.200mg/dL (0-99) VLDL Cholesterol 23.800mg/dL HDL Cholesterol 33mg/dL (>39) Cholesterol/HDL Ratio 4.06 (0.0-4.4) Thyroid Stimulating Hormone (TSH) 1.660uIU/mL (0.450-4.500) Test 05/23/16 05:12 White Blood Count 8.5th/mm3 (3.8-10.1) Red Blood Count 4.76mil/mm3 (4.40-5.80) Hemoglobin 14.4g/dL (13.8-17.2) Hematocrit 44.2% (41.0-50.0) Mean Corpuscular Volume 92.9fL (81-100) Mean Corpuscular Hemoglobin 30.3pg (27.0-35.0) Mean Corpuscular Hemoglobin Concent 32.6% (32.0-37.0) Red Cell Distribution Width 13.1% (12.3-15.4) Platelet Count 140bil/L (150-400) Sodium Level 142mEq/L (134-144) Potassium Level 4.0mEq/L (3.5-5.2) Chloride Level 105mEq/L (97-108) Carbon Dioxide Level 26mmol/L (18-29) Blood Urea Nitrogen 17mg/dL (8-27) Creatinine 1.10mg/dL (0.76-1.27) Estimat Glomerular Filtration Rate 69mL/min (>59) Glucose Level 93mg/dL (60-99) Calcium Level 8.6mg/dL (8.5-10.1) Discharge Medications Discharge Medications Aspirin Chew (Aspirin Chew) 81 Mg Chew 81 MG PO DAILY Prescribed by: MOE RUVALCABA DO Atorvastatin Calcium (Atorvastatin Calcium) 20 Mg Tablet 20 MG PO HS Prescribed by: MOE RUVALCABA DO Clopidogrel (Clopidogrel) 75 Mg Tablet 75 MG PO DAILY Prescribed by: MOE RUVALCABA DO Docusate Sodium (Docusate Sodium) 250 Mg Capsule 250 MG PO BID (Reported) Lisinopril (Zestril) 10 Mg Tablet 10 MG PO DAILY Prescribed by: MOE RUVALCABA DO Metoprolol Tartrate (Metoprolol Tartrate) 25 Mg Tablet 25 MG PO BID Prescribed by: MOE RUVALCABA DO Psyllium Husk (Metamucil) 3.4 Gram/5.4 Gram Powder 660 GM PO BID (Reported) Additional med instructions Patient started on atorvastatin 20 mg, metoprolol 25 mg twice daily, lisinopril 10 mg and clopidogrel for minimum of 6-12 months, indefinite aspirin therapy Followup Plan Disposition: Home with Follow-up plan See above Discharge Diet: Heart Healthy Discharge Activity: Limited until seen by PCP (low intensity walking okay), Other (plan for future cardiac rehabilitation) Patient Instructions You have been hospitalized for a heart attack that involved the bottom of the heart. A drug eluting stent has been placed to keep ear vessel open and facilitate oxygenation of your heart. Please follow up with her primary care doctor, at [place] within [address] Narayan within 1 week He had been prescribed a new cholesterol medicine, total statin to take every day. You been prescribed a blood thinner called clopidogrel to take once daily You have also been prescribed a blood pressure medicine, lisinopril and metoprolol to take as directed. All of these medications are protective for your heart. I have held her digoxin, please do not take his any longer as this can slow your heart rate significantly if taken along with you metoprolol. Please do not miss any doses Follow-up Provider: Greg Pratt MD Follow-up with PCP in: 1 week Provider: Rod Narayan MD Follow-up in: 1 week (1-2 weeks) Cardiac Rehab: 2 weeks (primary care physician can make a follow-up referral) Time spent 40 minutes spent on evaluation management including coordination of care. Greater than 50% time spent counseling [id number] Moe Ruvalcaba DO May 23, 2016 11:12 Moe Ruvalcaba DO May 23, 2016 11:12
[2016-05-23 12:35] VITALS: BP 129/77; PULSE 51; RESP 16; O2SAT 98
--- NOTE | 2016-05-23 14:10 | NUR ---
Discharge Patient discharged at 1410 with by his side and all current belongings. Pt received AM meds today with no issues. IVs were removed and pt was taken off telemetry. Instructions were provided and gone over with the patient regarding condition, new medications, future appointments, and side & symptoms to monitor. Pt verbalized understanding of teaching. Patient and family were assisted by staff member to the car.
== END 2016-05-23 14:23 | disposition home or self-care (01) | DRG 247 ==
LOC: SED 10:15 → SOUO 10:32 → CCU 11:57 → PCC 11:57 → SOUO 11:57 → CCU 15:10 → PCC 16:40
PROVIDERS: ADMIT Internal Medicine; ATTEND Internal Medicine
PROC: 027034Z Dilation of Coronary Artery, One Artery with Drug-eluting Intraluminal Device, Percutaneous Approach (ICD-10-PCS; principal; 2016-05-21)
PROC: 4A023N7 Measurement of Cardiac Sampling and Pressure, Left Heart, Percutaneous Approach (ICD-10-PCS; 2016-05-21)
PROC: B2111ZZ Fluoroscopy of Multiple Coronary Arteries using Low Osmolar Contrast (ICD-10-PCS; 2016-05-21)
PROC: B2151ZZ Fluoroscopy of Left Heart using Low Osmolar Contrast (ICD-10-PCS; 2016-05-21)
DX: I21.19 ST elevation (STEMI) myocardial infarction involving other coronary artery of inferior wall (principal); I47.2 Ventricular tachycardia; I10 Essential (primary) hypertension; I48.91 Unspecified atrial fibrillation; Z79.82 Long term (current) use of aspirin; Z85.46 Personal history of malignant neoplasm of prostate